=== PATIENT | female | born 1935 | race Caucasian/White ===

== ENCOUNTER → 2023-05-09 08:42 | Outpatient (REF) | payer MEDICARE, OTHER, SELFPAY ==
[2023-05-09 12:13] LABS: ALT (SGPT) 25 U/L (0-35); AST (SGOT) 25 U/L (14-36); Albumin 3.6 g/dl (3.5-5.0); Alkaline Phosphatase 114 U/L (38-126); Blood Urea Nitrogen 19 mg/dl (7-17); Calcium 9.7 mg/dl (8.4-10.2); Carbon Dioxide 33 mmol/L (22-30); Chloride 96 mmol/L (98-107); Glucose 140 mg/dl (70-99); HDL Cholesterol 52 mg/dl; LDL Cholesterol, Calculated 54 mg/dl; Potassium 4.2 mmol/L (3.5-5.1); Sodium 138 mmol/L (135-145); Total Bilirubin 0.7 mg/dl (0.2-1.3); Total Cholesterol 125 mg/dl (50-199); Total Protein 6.6 g/dl (6.3-8.2); Triglyceride 99 mg/dl (10-149); Very Low Density Lipoprotein 19 mg/dl (0-30); eGFR > 60.00
[2023-05-09 12:46] LABS: Microalbumin, Random Urine 0.9 mg/dl (0.6-1.7); Microalbumin/creatinine Ratio 6.7 mg/g
[2023-05-09 15:01] LABS: Glycohemoglobin (HgbA1c) 6.8 % (4.0-5.6)
== END ==
LOC: HWLAB 08:42
PROVIDERS: ATTENDING PHYSICIAN Internal Medicine
DX: I10 Essential (primary) hypertension (principal); E11.69 Type 2 diabetes mellitus with other specified complication
CPT/HCPCS: 36415; 80053; 80061; 82043; 82570; 83036

== ENCOUNTER → 2023-08-15 08:34 | Outpatient (REF) | payer MEDICARE, OTHER, SELFPAY ==
[2023-08-15 10:54] LABS: % Basophils 0.4 % (0-2); % Eosinophils 1.5 % (0-6); % Immature Granulocytes 0.4 % (0-0.5); % Monocytes 8.6 % (1.7-9.3); % Neutrophils 69.1 % (42.2-75.2); Absolute Eosinophils 0.1 10^3/uL (0-0.7); Absolute Lymphocytes 1.6 10^3/uL (1.2-3.4); Absolute Monocytes 0.7 10^3/uL (0.1-0.6); Absolute Neutrophils 5.6 10^3/uL (1.4-6.5); Hematocrit 32.5 % (37.0-47.0); Hemoglobin 9.7 g/dL (12.0-16.0); Mean Corp Hgb Conc. 29.8 g/dL (33.0-37.0); Mean Corpuscular Hgb 25.1 pg (27.0-31.0); Mean Platelet Volume 9.4 fL (7.4-10.4); Nucleated Red Blood Cells % 0 %; Platelet Count 450 10^3/uL (130-400); Red Blood Cell Count 3.87 10^6/uL (4.20-5.40); Red Cell Dist. Width 14.9 % (11.5-14.5)
[2023-08-15 11:28] LABS: ALT (SGPT) 20 U/L (0-35); AST (SGOT) 25 U/L (14-36); Albumin 3.2 g/dl (3.5-5.0); Alkaline Phosphatase 110 U/L (38-126); Blood Urea Nitrogen 21 mg/dl (7-17); Carbon Dioxide 30 mmol/L (22-30); Chloride 98 mmol/L (98-107); Glucose 123 mg/dl (70-99); HDL Cholesterol 52 mg/dl; LDL Cholesterol, Calculated 47 mg/dl; Potassium 3.8 mmol/L (3.5-5.1); Sodium 138 mmol/L (135-145); Total Bilirubin 0.5 mg/dl (0.2-1.3); Total Cholesterol 116 mg/dl (50-199); Triglyceride 85 mg/dl (10-149); Very Low Density Lipoprotein 17 mg/dl (0-30); eGFR > 60.00
[2023-08-15 11:52] LABS: TSH Reflex To Free T4 1.61 uIU/ml (0.47-4.68)
[2023-08-15 11:54] LABS: Glycohemoglobin (HgbA1c) 6.5 % (4.0-5.6)
== END ==
LOC: HWLAB 08:34
PROVIDERS: ATTENDING PHYSICIAN Internal Medicine
DX: I10 Essential (primary) hypertension (principal); E11.9 Type 2 diabetes mellitus without complications; E78.5 Hyperlipidemia, unspecified; G89.29 Other chronic pain; E03.9 Hypothyroidism, unspecified
CPT/HCPCS: 36415; 80053; 80061; 83036; 84443; 85025

== ENCOUNTER → 2023-08-17 10:04 | Outpatient (REF) | payer MEDICARE, OTHER, SELFPAY ==
[2023-08-17 12:53] LABS: % Basophils 0.5 % (0-2); % Eosinophils 0.8 % (0-6); % Immature Granulocytes 0.4 % (0-0.5); % Lymphocytes 17.1 % (20.5-51.1); % Monocytes 8.7 % (1.7-9.3); % Neutrophils 72.5 % (42.2-75.2); Absolute Basophils 0.1 10^3/uL (0-0.2); Absolute Eosinophils 0.1 10^3/uL (0-0.7); Absolute Lymphocytes 1.8 10^3/uL (1.2-3.4); Absolute Monocytes 0.9 10^3/uL (0.1-0.6); Absolute Neutrophils 7.5 10^3/uL (1.4-6.5); Hemoglobin 10.1 g/dL (12.0-16.0); Mean Corp Hgb Conc. 30.6 g/dL (33.0-37.0); Mean Corpuscular Hgb 25.3 pg (27.0-31.0); Mean Corpuscular Volume 82.5 fL (81.0-99.0); Mean Platelet Volume 9.8 fL (7.4-10.4); Nucleated Red Blood Cells % 0 %; Platelet Count 485 10^3/uL (130-400); Red Cell Dist. Width 14.9 % (11.5-14.5); White Blood Cell Count 10.3 10^3/uL (4.8-10.8)
[2023-08-17 13:25] LABS: Total Iron Binding Capacity 253 ug/dl (265-497)
[2023-08-17 15:37] LABS: Vitamin B12 > 1000 pg/ml (239-931)
== END ==
LOC: HWLAB 10:04
PROVIDERS: ATTENDING PHYSICIAN Internal Medicine
DX: I10 Essential (primary) hypertension (principal); E11.9 Type 2 diabetes mellitus without complications; D50.0 Iron deficiency anemia secondary to blood loss (chronic); M19.90 Unspecified osteoarthritis, unspecified site
CPT/HCPCS: 36415; 82607; 82728; 83550; 85025

== ENCOUNTER → 2023-11-14 09:42 | Outpatient (REF) | payer MEDICARE, OTHER, SELFPAY ==
[2023-11-14 11:50] LABS: % Basophils 0.5 % (0-2); % Eosinophils 0.5 % (0-6); % Immature Granulocytes 0.4 % (0-0.5); % Lymphocytes 16.3 % (20.5-51.1); % Monocytes 7.8 % (1.7-9.3); % Neutrophils 74.5 % (42.2-75.2); Absolute Basophils 0.1 10^3/uL (0-0.2); Absolute Eosinophils 0.1 10^3/uL (0-0.7); Absolute Lymphocytes 1.7 10^3/uL (1.2-3.4); Absolute Monocytes 0.8 10^3/uL (0.1-0.6); Absolute Neutrophils 7.6 10^3/uL (1.4-6.5); Hematocrit 31.1 % (37.0-47.0); Hemoglobin 9.7 g/dL (12.0-16.0); Mean Corp Hgb Conc. 31.2 g/dL (33.0-37.0); Mean Corpuscular Hgb 25.1 pg (27.0-31.0); Mean Corpuscular Volume 80.4 fL (81.0-99.0); Mean Platelet Volume 9.3 fL (7.4-10.4); Nucleated Red Blood Cells % 0 %; Platelet Count 515 10^3/uL (130-400); Red Blood Cell Count 3.87 10^6/uL (4.20-5.40); White Blood Cell Count 10.1 10^3/uL (4.8-10.8)
[2023-11-14 11:51] LABS: ALT (SGPT) 18 U/L (0-35); AST (SGOT) 28 U/L (14-36); Albumin 3.7 g/dl (3.5-5.0); Alkaline Phosphatase 110 U/L (38-126); Blood Urea Nitrogen 22 mg/dl (7-17); Calcium 10.2 mg/dl (8.4-10.2); Carbon Dioxide 30 mmol/L (22-30); Chloride 98 mmol/L (98-107); Glucose 122 mg/dl (70-99); HDL Cholesterol 61 mg/dl; LDL Cholesterol, Calculated 51 mg/dl; Potassium 4.1 mmol/L (3.5-5.1); Sodium 140 mmol/L (135-145); Total Bilirubin 0.5 mg/dl (0.2-1.3); Total Cholesterol 126 mg/dl (50-199); Total Protein 6.5 g/dl (6.3-8.2); Triglyceride 74 mg/dl (10-149); Very Low Density Lipoprotein 14 mg/dl (0-30); eGFR > 60.00
[2023-11-14 12:00] LABS: Intact PTH 34.4 pg/ml (13.6-85.8)
[2023-11-14 14:00] LABS: Erythrocyte Sed Rate 51 mm/hour (0-20)
[2023-11-14 14:02] LABS: Glycohemoglobin (HgbA1c) 5.9 % (4.0-5.6)
== END ==
LOC: HWLAB 09:42
PROVIDERS: ATTENDING PHYSICIAN Internal Medicine Rheumatology; FAMILY PHYSICIAN Internal Medicine
DX: E21.5 Disorder of parathyroid gland, unspecified (principal); M81.0 Age-related osteoporosis without current pathological fracture; R79.82 Elevated C-reactive protein (CRP); Z51.81 Encounter for therapeutic drug level monitoring; E11.9 Type 2 diabetes mellitus without complications; E78.5 Hyperlipidemia, unspecified; I10 Essential (primary) hypertension
CPT/HCPCS: 36415; 80053; 80061; 83036; 83970; 85025; 85652; 86140

== ENCOUNTER → 2023-11-23 11:55 | Outpatient (REF) | payer MEDICARE, OTHER, SELFPAY ==
[2023-11-23 15:39] LABS: % Basophils 0.3 % (0-2); % Eosinophils 0.2 % (0-6); % Immature Granulocytes 0.5 % (0-0.5); % Lymphocytes 16.8 % (20.5-51.1); % Monocytes 8.3 % (1.7-9.3); % Neutrophils 73.9 % (42.2-75.2); Absolute Immature Granulocytes 0.1 10^3/uL (0-0.05); Absolute Neutrophils 8.9 10^3/uL (1.4-6.5); Hematocrit 30.5 % (37.0-47.0); Hemoglobin 9.6 g/dL (12.0-16.0); Mean Corp Hgb Conc. 31.5 g/dL (33.0-37.0); Mean Corpuscular Hgb 24.2 pg (27.0-31.0); Nucleated Red Blood Cells % 0 %; Platelet Count 542 10^3/uL (130-400); Red Blood Cell Count 3.96 10^6/uL (4.20-5.40); Red Cell Dist. Width 15.1 % (11.5-14.5); Reticulocyte Count 1.8 % (0.4-2.8); White Blood Cell Count 12.1 10^3/uL (4.8-10.8)
[2023-11-23 15:43] LABS: Iron 26 ug/dl (37-170); LDH 172 U/L (120-246)
[2023-11-23 15:53] LABS: Percent Saturation 11 % (20-50); Total Iron Binding Capacity 236 ug/dl (265-497)
[2023-11-23 16:10] LABS: Erythrocyte Sed Rate 58 mm/hour (0-20)
[2023-11-23 16:53] LABS: Folate > 20.0 ng/ml (2.76-20); Vitamin B12 > 1000 pg/ml (239-931)
[2023-11-25 16:21] LABS: Erythropoietin (EPO) 17 mU/mL (4-27)
[2023-11-26 01:32] LABS: Haptoglobin 425 mg/dL (30-200)
== END ==
LOC: HWLAB 11:55
PROVIDERS: ATTENDING PHYSICIAN Internal Medicine Hematology & Oncology; FAMILY PHYSICIAN Internal Medicine; REFERRING PHYSICIAN Internal Medicine Rheumatology
DX: D64.9 Anemia, unspecified (principal); R79.82 Elevated C-reactive protein (CRP)
CPT/HCPCS: 36415; 82607; 82668; 82728; 82746; 82784; 83010; 83521; 83540; 83550; 83615; 84155; 84165; 85025; 85045; 85652; 86140; 86334; 86880

== ENCOUNTER → 2024-01-25 11:37 | Outpatient (REF) | payer MEDICARE, OTHER, SELFPAY ==
[2024-01-25 16:52] LABS: % Basophils 0.5 % (0-2); % Eosinophils 0.4 % (0-6); % Immature Granulocytes 0.4 % (0-0.5); % Lymphocytes 18.1 % (20.5-51.1); % Neutrophils 70.6 % (42.2-75.2); Absolute Basophils 0.1 10^3/uL (0-0.2); Absolute Lymphocytes 1.8 10^3/uL (1.2-3.4); Absolute Neutrophils 6.9 10^3/uL (1.4-6.5); Hematocrit 28.4 % (37.0-47.0); Hemoglobin 8.5 g/dL (12.0-16.0); Mean Corp Hgb Conc. 29.9 g/dL (33.0-37.0); Mean Corpuscular Hgb 23.6 pg (27.0-31.0); Mean Corpuscular Volume 78.9 fL (81.0-99.0); Mean Platelet Volume 9.3 fL (7.4-10.4); Nucleated Red Blood Cells % 0 %; Platelet Count 487 10^3/uL (130-400); White Blood Cell Count 9.8 10^3/uL (4.8-10.8)
[2024-01-25 16:59] LABS: ALT (SGPT) 17 U/L (0-35); AST (SGOT) 26 U/L (14-36); Albumin 3.5 g/dl (3.5-5.0); Alkaline Phosphatase 105 U/L (38-126); Blood Urea Nitrogen 17 mg/dl (7-17); Calcium 9.3 mg/dl (8.4-10.2); Carbon Dioxide 31 mmol/L (22-30); Chloride 97 mmol/L (98-107); Glucose 104 mg/dl (70-99); HDL Cholesterol 53 mg/dl; LDL Cholesterol, Calculated 41 mg/dl; Potassium 4.2 mmol/L (3.5-5.1); Sodium 139 mmol/L (135-145); Total Bilirubin 0.6 mg/dl (0.2-1.3); Total Cholesterol 110 mg/dl (50-199); Total Protein 6.3 g/dl (6.3-8.2); Triglyceride 83 mg/dl (10-149); Very Low Density Lipoprotein 16 mg/dl (0-30); eGFR > 60.00
[2024-01-25 17:14] LABS: Erythrocyte Sed Rate 61 mm/hour (0-20)
[2024-01-25 17:18] LABS: Vitamin D, 25-OH*** 45.6 ng/mL (30-80)
[2024-01-25 17:32] LABS: TSH Reflex To Free T4 1.11 uIU/ml (0.47-4.68)
[2024-01-26 11:46] LABS: Glycohemoglobin (HgbA1c) 5.8 % (4.0-5.6)
[2024-01-27 08:56] LABS: Intact PTH 38.5 pg/ml (13.6-85.8)
[2024-01-27 17:04] LABS: CTx 130 pg/mL
== END ==
LOC: HWLAB 11:37
PROVIDERS: ATTENDING PHYSICIAN Internal Medicine Rheumatology; FAMILY PHYSICIAN Internal Medicine
DX: E11.9 Type 2 diabetes mellitus without complications (principal); E78.5 Hyperlipidemia, unspecified; E03.9 Hypothyroidism, unspecified; I10 Essential (primary) hypertension; M15.0 Primary generalized (osteo)arthritis; M48.07 Spinal stenosis, lumbosacral region; M65.341 Trigger finger, right ring finger; M81.0 Age-related osteoporosis without current pathological fracture; Z87.81 Personal history of (healed) traumatic fracture
CPT/HCPCS: 36415; 80053; 80061; 82306; 82523; 83036; 83970; 84443; 85025; 85652; 86140

== ENCOUNTER → 2024-02-21 15:43 | Outpatient (REF) | payer MEDICARE, OTHER, SELFPAY | LOC: RAD 15:43 | PROVIDERS: ATTENDING PHYSICIAN Student in an Organized Health Care Education/Training Program; FAMILY PHYSICIAN Internal Medicine | DX: M86.652 Other chronic osteomyelitis, left thigh (principal) | CPT/HCPCS: 73701; Q9967 ==

== ENCOUNTER → 2024-04-02 10:53 | Outpatient (REF) | payer MEDICARE, OTHER, SELFPAY ==
[2024-04-02 13:22] LABS: ALT (SGPT) 20 U/L (0-35); AST (SGOT) 25 U/L (14-36); Albumin 3.5 g/dl (3.5-5.0); Alkaline Phosphatase 97 U/L (38-126); Blood Urea Nitrogen 16 mg/dl (7-17); Calcium 9.3 mg/dl (8.4-10.2); Carbon Dioxide 30 mmol/L (22-30); Chloride 95 mmol/L (98-107); Glucose 124 mg/dl (70-99); HDL Cholesterol 63 mg/dl; LDL Cholesterol, Calculated 50 mg/dl; Potassium 4.5 mmol/L (3.5-5.1); Sodium 134 mmol/L (135-145); Total Bilirubin 0.4 mg/dl (0.2-1.3); Total Cholesterol 127 mg/dl (50-199); Total Protein 6.3 g/dl (6.3-8.2); Triglyceride 73 mg/dl (10-149); Very Low Density Lipoprotein 14 mg/dl (0-30); eGFR > 60.00
[2024-04-02 14:13] LABS: Erythrocyte Sed Rate 58 mm/hour (0-20)
[2024-04-02 14:24] LABS: % Basophils 0.3 % (0-2); % Eosinophils 0.6 % (0-6); % Immature Granulocytes 0.4 % (0-0.5); % Lymphocytes 17.4 % (20.5-51.1); % Neutrophils 72.3 % (42.2-75.2); Absolute Eosinophils 0.1 10^3/uL (0-0.7); Absolute Lymphocytes 1.6 10^3/uL (1.2-3.4); Absolute Monocytes 0.8 10^3/uL (0.1-0.6); Absolute Neutrophils 6.8 10^3/uL (1.4-6.5); Hematocrit 28.9 % (37.0-47.0); Hemoglobin 8.7 g/dL (12.0-16.0); Mean Corp Hgb Conc. 30.1 g/dL (33.0-37.0); Mean Corpuscular Hgb 22.9 pg (27.0-31.0); Mean Corpuscular Volume 76.1 fL (81.0-99.0); Mean Platelet Volume 9.2 fL (7.4-10.4); Nucleated Red Blood Cells % 0 %; Platelet Count 493 10^3/uL (130-400); Red Cell Dist. Width 15.3 % (11.5-14.5); White Blood Cell Count 9.4 10^3/uL (4.8-10.8)
== END ==
LOC: HWLAB 10:53
PROVIDERS: ATTENDING PHYSICIAN Student in an Organized Health Care Education/Training Program; FAMILY PHYSICIAN Internal Medicine
DX: T84.50XD Infection and inflammatory reaction due to unspecified internal joint prosthesis, subsequent encounter (principal); E11.9 Type 2 diabetes mellitus without complications; I10 Essential (primary) hypertension; D50.0 Iron deficiency anemia secondary to blood loss (chronic); E78.5 Hyperlipidemia, unspecified
CPT/HCPCS: 36415; 80053; 80061; 83036; 85025; 85652; 86140

== ENCOUNTER → 2024-06-10 12:40 | Outpatient (REF) | payer MEDICARE, OTHER, SELFPAY ==
[2024-06-10 16:15] LABS: ALT (SGPT) 23 U/L (0-35); AST (SGOT) 25 U/L (14-36); Albumin 3.7 g/dl (3.5-5.0); Alkaline Phosphatase 126 U/L (38-126); Blood Urea Nitrogen 20 mg/dl (7-17); Calcium 10.9 mg/dl (8.4-10.2); Carbon Dioxide 32 mmol/L (22-30); Chloride 97 mmol/L (98-107); Glucose 116 mg/dl (70-99); Potassium 4.1 mmol/L (3.5-5.1); Sodium 138 mmol/L (135-145); Total Bilirubin 0.5 mg/dl (0.2-1.3); Total Protein 6.5 g/dl (6.3-8.2); eGFR > 60.00
[2024-06-10 16:56] LABS: Erythrocyte Sed Rate 60 mm/hour (0-20)
[2024-06-10 17:21] LABS: % Basophils 0.3 % (0-2); % Eosinophils 0.6 % (0-6); % Immature Granulocytes 0.5 % (0-0.5); % Lymphocytes 15.3 % (20.5-51.1); % Monocytes 8.3 % (1.7-9.3); Absolute Eosinophils 0.1 10^3/uL (0-0.7); Absolute Immature Granulocytes 0.1 10^3/uL (0-0.05); Absolute Monocytes 1.1 10^3/uL (0.1-0.6); Absolute Neutrophils 9.6 10^3/uL (1.4-6.5); Hematocrit 29.3 % (37.0-47.0); Hemoglobin 8.8 g/dL (12.0-16.0); Mean Corpuscular Hgb 22.6 pg (27.0-31.0); Mean Corpuscular Volume 75.3 fL (81.0-99.0); Mean Platelet Volume 9.2 fL (7.4-10.4); Nucleated Red Blood Cells % 0 %; Platelet Count 611 10^3/uL (130-400); Red Blood Cell Count 3.89 10^6/uL (4.20-5.40); Red Cell Dist. Width 17.4 % (11.5-14.5); White Blood Cell Count 12.8 10^3/uL (4.8-10.8)
== END ==
LOC: HWLAB 12:40
PROVIDERS: ATTENDING PHYSICIAN Student in an Organized Health Care Education/Training Program; FAMILY PHYSICIAN Internal Medicine
DX: M86.8X8 Other osteomyelitis, other site (principal)
CPT/HCPCS: 36415; 80053; 85025; 85652; 86140

== ENCOUNTER → 2024-07-22 14:46 | Outpatient (REF) | payer MEDICARE, OTHER, SELFPAY | LOC: CLAB 14:46 | PROVIDERS: ATTENDING PHYSICIAN Student in an Organized Health Care Education/Training Program | DX: T84.50XD Infection and inflammatory reaction due to unspecified internal joint prosthesis, subsequent encounter (principal) | CPT/HCPCS: 87070; 87075; 87205 ==

== ENCOUNTER → 2024-07-26 15:29 | Outpatient (REF) | payer MEDICARE, OTHER, SELFPAY | LOC: RAD 15:29 | PROVIDERS: ATTENDING PHYSICIAN Student in an Organized Health Care Education/Training Program; FAMILY PHYSICIAN Internal Medicine | DX: T84.50XD Infection and inflammatory reaction due to unspecified internal joint prosthesis, subsequent encounter (principal) | CPT/HCPCS: 73702; Q9967 ==

== ENCOUNTER → 2024-08-05 13:33 | Outpatient (REF) | payer MEDICARE, OTHER, SELFPAY ==
[2024-08-05 15:36] LABS: % Basophils 0.3 % (0-2); % Eosinophils 0.2 % (0-6); % Immature Granulocytes 0.6 % (0-0.5); % Lymphocytes 18.3 % (20.5-51.1); % Monocytes 10.1 % (1.7-9.3); % Neutrophils 70.5 % (42.2-75.2); Absolute Immature Granulocytes 0.1 10^3/uL (0-0.05); Absolute Lymphocytes 1.9 10^3/uL (1.2-3.4); Absolute Neutrophils 7.2 10^3/uL (1.4-6.5); Hematocrit 30.7 % (37.0-47.0); Hemoglobin 9.3 g/dL (12.0-16.0); Mean Corp Hgb Conc. 30.3 g/dL (33.0-37.0); Mean Corpuscular Hgb 23.7 pg (27.0-31.0); Mean Corpuscular Volume 78.1 fL (81.0-99.0); Mean Platelet Volume 9.3 fL (7.4-10.4); Nucleated Red Blood Cells % 0 %; Platelet Count 524 10^3/uL (130-400); Red Blood Cell Count 3.93 10^6/uL (4.20-5.40); Red Cell Dist. Width 17.3 % (11.5-14.5); White Blood Cell Count 10.2 10^3/uL (4.8-10.8)
[2024-08-05 15:57] LABS: ALT (SGPT) 36 U/L (0-35); AST (SGOT) 33 U/L (14-36); Albumin 3.4 g/dl (3.5-5.0); Alkaline Phosphatase 123 U/L (38-126); Blood Urea Nitrogen 19 mg/dl (7-17); Calcium 9.5 mg/dl (8.4-10.2); Carbon Dioxide 31 mmol/L (22-30); Chloride 103 mmol/L (98-107); Glucose 109 mg/dl (70-99); Potassium 4.1 mmol/L (3.5-5.1); Sodium 138 mmol/L (135-145); Total Bilirubin 0.5 mg/dl (0.2-1.3); eGFR > 60.00
[2024-08-05 16:05] LABS: Erythrocyte Sed Rate 81 mm/hour (0-20)
[2024-08-05 16:10] LABS: Microalbumin, Random Urine 1.1 mg/dl (0.6-1.7); Microalbumin/creatinine Ratio 17.7 mg/g
[2024-08-05 16:12] LABS: Vitamin D, 25-OH*** 47.3 ng/mL (30-80)
== END ==
LOC: HWLAB 13:33
PROVIDERS: ATTENDING PHYSICIAN Student in an Organized Health Care Education/Training Program; FAMILY PHYSICIAN Internal Medicine; REFERRING PHYSICIAN Internal Medicine Rheumatology
DX: T84.50XD Infection and inflammatory reaction due to unspecified internal joint prosthesis, subsequent encounter (principal); E11.9 Type 2 diabetes mellitus without complications; I10 Essential (primary) hypertension; E03.9 Hypothyroidism, unspecified; D50.0 Iron deficiency anemia secondary to blood loss (chronic); E78.5 Hyperlipidemia, unspecified; M15.0 Primary generalized (osteo)arthritis; M81.0 Age-related osteoporosis without current pathological fracture
CPT/HCPCS: 36415; 80053; 82043; 82306; 82570; 85025; 85652; 86140

== ENCOUNTER → 2024-08-09 13:54 | Outpatient (REF) | payer MEDICARE, OTHER, SELFPAY | LOC: HWRAD 13:54 | PROVIDERS: ATTENDING PHYSICIAN Student in an Organized Health Care Education/Training Program; FAMILY PHYSICIAN Internal Medicine | DX: L02.91 Cutaneous abscess, unspecified (principal); R22.42 Localized swelling, mass and lump, left lower limb | CPT/HCPCS: 76882 ==

== ENCOUNTER → 2024-08-15 09:16 | Outpatient (REF) | payer MEDICARE, OTHER, SELFPAY ==
[2024-08-15 09:48] VITALS: BP 127/58; BP_SYST 69
[2024-08-15 11:41] VITALS: BP 120/65
== END ==
LOC: RADI 09:16
PROVIDERS: ATTENDING PHYSICIAN Student in an Organized Health Care Education/Training Program; FAMILY PHYSICIAN Internal Medicine
DX: T81.41XA Infection following a procedure, superficial incisional surgical site, initial encounter (principal); Y83.8 Other surgical procedures as the cause of abnormal reaction of the patient, or of later complication, without mention of misadventure at the time of the procedure; M86.8X8 Other osteomyelitis, other site
CPT/HCPCS: 36573; 10030; 76942; 87070; 87075; 87205

== ENCOUNTER 2024-08-15 11:38 | Outpatient (RCR) | payer MEDICARE, OTHER, SELFPAY ==
[2024-08-15 12:00] VITALS: BP 109/60
[2024-08-15] MEDS: VANCOCIN 150 IV (12:07)
[2024-08-15] MEDS: ROCEPHIN 70 MG IV (13:11)
== END 2024-09-02 23:59 | disposition home or self-care (01) ==
LOC: OID 11:38
PROVIDERS: ATTENDING PHYSICIAN Student in an Organized Health Care Education/Training Program; FAMILY PHYSICIAN Internal Medicine
DX: T84.50XD Infection and inflammatory reaction due to unspecified internal joint prosthesis, subsequent encounter (principal); Y83.1 Surgical operation with implant of artificial internal device as the cause of abnormal reaction of the patient, or of later complication, without mention of misadventure at the time of the procedure; M86.8X8 Other osteomyelitis, other site
CPT/HCPCS: 10030; 36573; 76942; 87070; 87075; 87205; 96365; 96367

== ENCOUNTER 2024-08-16 15:32 | Emergency (ER) | payer MEDICARE, OTHER, SELFPAY ==
[2024-08-16 15:35] VITALS: BP 143/65
--- NOTE | 2024-08-16 16:19 | ED.GENMED ---
History of Present Illness
General
Chief Complaint: Vascular Access Problem
Time Seen by Provider: 08/16/24 16:18
History of Present Illness
History of Present Illness:
REVIEW OF OLD RECORDS
- The patient had a PICC placed by IR 08/15/2024
CHIEF COMPLAINT(S)
Blocked red port on recently placed Peripherally Inserted Central Catheter (PICC).
HISTORY OF PRESENT ILLNESS
The patient is an 89-year-old female who had a Peripherally Inserted Central Catheter (PICC) line inserted yesterday by Dr. Looney, the interventional radiologist, for the administration of long-term intravenous antibiotics due to a bacterial
infection as reported. The patients aide, who provides care together with the patients daughter, indicated that the red port of the PICC line is blocked and non-functional, although it has been flushed at home. The white port is functional. An X-ray
confirmed proper positioning of the PICC line, but concerns remain regarding the functionality of the red port.
There is also noted swelling and presence of a drainage catheter behind the patient�s left knee, indicative of ongoing infection management at that site, according to the aide.
ADDITIONAL HISTORY OBTAINED FROM SOURCES OTHER THAN THE PATIENT
Information was provided by the patients aide, including details about the PICC line blockage and functionality of ports, as well as the presence of a drainage catheter related to the infection.
REVIEW OF SYSTEMS
- Vascular Access: Difficulty with the red port of the PICC line being blocked.
- Musculoskeletal: Swelling noted around the left knee.
PHYSICAL EXAM
- Vascular Access: Presence of Peripherally Inserted Central Catheter (PICC) with blocked red port.
- Musculoskeletal: Significant swelling noted in the left knee area, with a drainage catheter present.
- General: Well appearing in no distress, but appears somewhat generally weak
- HEENT: Moist oral mucosa
- Abdomen: Soft with no peritoneal signs, no tenderness
- Neurologic: Fair strength all extremities, no coordination deficits
- Psychiatric: Appropriate mental status, normal insight and judgement
PLAN
- Attempt to flush the red port of the PICC line.
- Consult with the vascular access team to evaluate the functionality of the red port and determine need for intervention.
DIFFERENTIAL DIAGNOSIS
The Differential Diagnosis includes, in no particular order and is not limited to:
- Mechanical obstruction of PICC line
- Blood clot in PICC line
- Malposition of PICC line
- PICC line-related infection
- Local infection at the drainage site
- Soft tissue swelling secondary to infection
- Deep vein thrombosis
- Lymphedema
- Hematoma
- Venous insufficiency
RADIOLOGY
- Chest x-ray confirms tip of in the SVC
EKG
- Not indicated
LABS
- Not indicated
UPDATE
- I discussed case with vascular access team and I also discussed with the daughter at bedside. Will try Cathflo to open the blocked lumen of the PICC line.
Cathflo was used to open the red port. Return here if worse or other concerns. Chest x-ray confirmed appropriate positioning of the PICC line.
Past History
Past History
ED Past Medical History: NIDDM and Hypothyroidism
ED Past Surgical History: Appendectomy, Cholecystectomy and Orthopedic (right hip replaced)
Social History
Tobacco: Non-smoker
Alcohol: None
Drug: None
Personal:
Living: custodial ([facility] for rehab)
Employment: Not employed
Family History
Family History: Other (Noncontributory)
Phy Exam
Physical Exam
Physical Exam:
See HPI
Course
Orders/Labs/Results
Orders:
Orders
08/16/24 15:52
CR Chest Single View Urgent
Comment:
Reason For Exam: PICC placement confirmation
08/16/24 17:30
Alteplase [Cathflo/Activase] 2 mg INTRACATH NOW STA
Vital Signs
Initial and Last Documented VS:
Initial Vital Signs
Temp Pulse Resp BP Pulse Ox
36.5 C 75 17 143/65 99
08/16/24 15:35 08/16/24 15:35 08/16/24 15:35 08/16/24 15:35 08/16/24 15:35
Last Documented Vital Signs
Temp Pulse Resp BP Pulse Ox
36.5 C 75 17 143/65 99
08/16/24 15:35 08/16/24 15:35 08/16/24 15:35 08/16/24 15:35 08/16/24 15:35
*Pulse Oximetry
Patient hypoxic: no (99% room air-normal)
*Critical Care Note
Total Time (30-74mins, 75-104mins- exclusive of procedures): Not Applicable
ED Attending Note
-
Portions of this chart may have been created with voice recognition software.� Occasional wrong word or��sound alike� substitutions may have occurred due to the inherent limitations of voice recognition software.
Discharge Plan
Departure
Patient Disposition: Home (Routine Discharge)
Date of Disposition: 08/16/24
Time of Disposition: 18:15
Patient with high blood pressure during this ER visit?: Yes
Discharge Problem:
Occluded PICC line
Instructions: Peripherally-Inserted Central Catheter (DC), BLOOD PRESSURE
Prescriptions:
No Action
levothyroxine 50 MCG tablet
50 mcg PO DAILY AT 0700 Qty: 0
glucosamine sulfate
3 tab PO DAILY
hydrochlorothiazide 25 mg Tablet
12.5 mg PO DAILY
fluoxetine [Prozac] 20 mg Capsule
20 mg PO DAILY
simvastatin 40 MG tablet
40 mg PO QPM
Prolia 60 mg/mL Syringe
60 mg SC
mirabegron [Myrbetriq] 50 mg Tablet Extended Release 24 Hr
50 mg PO DAILY
Foltanx
2 tab PO DAILY
acetaminophen [Pain Reliever ES(acetaminophn)] 500 mg Tablet
1,000 mg PO TID Qty: 100 0RF
cholecalciferol (vitamin D3) 2,000 UNITS tablet
2,000 unit PO DAILY Qty: 90 0RF
Referrals:
Fredy Blandon I., [Family Provider, Internal Medicine]
Activity Restrictions/Additional Instructions:
Cathflo was used to open the red port. Return here if worse or other concerns. Chest x-ray confirmed appropriate positioning of the PICC line. Return here if worse or other concerns.
Interventions
Interventions:
*Risk Screen - Suicide Last Done: 08/16/24 15:35
*Neglect/Abuse Screening Last Done: 08/16/24 15:35
Discharge Date and Time
Print Language: [place]
[2024-08-16] MEDS: CATHFLO/ACTIVASE 2 MG INTRACATH (18:02)
--- NOTE | 2024-08-16 18:21 | VATNOTE ---
Patient presented to the ER with c/o unable to flush red lumen of double lumen PICC. Unable to flush or obtain blood return from red lumen; white lumen flushed easily and had brisk blood return. CatFlo instilled into red lumen as per protocol. Lumen
now flushes easily and has brisk blood return. ER MD made aware. Appropriate flushing and clamping of lumens reinforced with patient, daughter, and caregiver.
== END 2024-08-16 18:30 | disposition home or self-care (01) ==
LOC: EMR 15:32
PROVIDERS: EMERGENCY PHYSICIAN Emergency Medicine; FAMILY PHYSICIAN Internal Medicine
DX: T82.594A Other mechanical complication of infusion catheter, initial encounter (principal); Y92.9 Unspecified place or not applicable; E03.9 Hypothyroidism, unspecified; E11.9 Type 2 diabetes mellitus without complications; Z90.49 Acquired absence of other specified parts of digestive tract
CPT/HCPCS: 99283; 71045; J2997

== ENCOUNTER → 2024-09-09 11:17 | Outpatient (REF) | payer MEDICARE, OTHER, SELFPAY ==
[2024-09-09 15:48] LABS: Hematocrit 30.2 % (37.0-47.0); Hemoglobin 9.2 g/dL (12.0-16.0); Mean Corp Hgb Conc. 30.5 g/dL (33.0-37.0); Mean Corpuscular Volume 78.6 fL (81.0-99.0); Nucleated Red Blood Cells % 0 %; Platelet Count 410 10^3/uL (130-400); Red Cell Dist. Width 16.0 % (11.5-14.5)
[2024-09-09 15:51] LABS: ALT (SGPT) 34 U/L (0-35); AST (SGOT) 32 U/L (14-36); Albumin 3.4 g/dl (3.5-5.0); Blood Urea Nitrogen 17 mg/dl (7-17); Calcium 9.6 mg/dl (8.4-10.2); Carbon Dioxide 29 mmol/L (22-30); Chloride 103 mmol/L (98-107); Glucose 111 mg/dl (70-99); Potassium 3.7 mmol/L (3.5-5.1); Sodium 136 mmol/L (135-145); Total Protein 6.1 g/dl (6.3-8.2); eGFR > 60.00
[2024-09-09 15:54] LABS: C-Reactive Protein 75.30 mg/L (0.0-10.00)
[2024-09-09 16:00] LABS: Alkaline Phosphatase 104 U/L (38-126)
== END ==
LOC: HWLAB 11:17
PROVIDERS: ATTENDING PHYSICIAN Student in an Organized Health Care Education/Training Program; FAMILY PHYSICIAN Internal Medicine
DX: M86.10 Other acute osteomyelitis, unspecified site (principal)
CPT/HCPCS: 36415; 80053; 80202; 85025; 85652; 86140

== ENCOUNTER 2024-09-16 12:52 | Emergency (ER) | payer MEDICARE, OTHER, SELFPAY ==
[2024-09-16 13:01] VITALS: BP 134/58
--- NOTE | 2024-09-16 16:26 | ED.GENMED ---
History of Present Illness
General
Chief Complaint: Catheter/Tube Problem
Source: patient and records
Exam Limitations: none
Time Seen by Provider: 09/16/24 16:01
History of Present Illness
History of Present Illness:
89yoF currently being treated for a L leg infection with IV antibiotics via PICC line presenting with her daughter for evaluation of a clogged PICC line. Patient is scheduled to receive antibiotics up until 09/26/24. She started to notice that the
PICC line was 'sluggish' the past few days. The antibiotics typically take 1 hour to infuse but it has been taking 2 hours. She was seen in the ED about a month ago for a clogged PICC line and received Cathflo at that time. She denies any
swelling or pain in her arm. No fevers. She was seen by her ID physician earlier today.
Past History
Past History
ED Past Medical History: NIDDM and Hypothyroidism
ED Past Surgical History: Appendectomy, Cholecystectomy and Orthopedic (right hip replaced)
Social History
Tobacco: Non-smoker
Alcohol: None
Drug: None
Personal:
Living: detention ([facility] [facility] for rehab)
Employment: Not employed
Family History
Family History: Other (Noncontributory)
Phy Exam
General Physical Exam
General Presentation: well appearing and no apparent distress
General Skin: warm and dry
General Habitus: normal
General Mental: alert
ENT Exam
ENT Exam: normocephalic
Pulmonary Exam
Pulmonary Exam: no respiratory distress
Neurological Exam
Neurological Exam: alert
T[place]xton Coma Scale
Eye Opening: Spontaneous
Verbal Response: Oriented
Motor Response: Obeys Commands
GCS Total Score: 15
Skin Exam
Skin Exam: normal color, warm/dry and other (LUE PICC line in place without edema or signs of infection.)
Psychiatric Exam
Psychiatric Exam: normal mood/affect
Course
Vital Signs
Initial and Last Documented VS:
Initial Vital Signs
Temp Pulse Resp BP Pulse Ox
98 F 71 20 134/58 99
09/16/24 13:01 09/16/24 13:01 09/16/24 13:01 09/16/24 13:01 09/16/24 13:01
Last Documented Vital Signs
Temp Pulse Resp BP Pulse Ox
98 F 71 20 134/58 99
09/16/24 13:01 09/16/24 13:01 09/16/24 13:01 09/16/24 13:01 09/16/24 16:29
MDM/Problems Addressed
Differential Diagnosis Includes:
89yoF here for a'sluggish' PICC line. Antibiotics taking 2 hours instead of 1 the past few days. VSS. She is well appearing in no distress. There is no arm swelling or signs of surrounding cellulitis on exam. Differential diagnosis includes: PICC
line resistance vs. clogged PICC line
IV nurse came and assessed PICC line. She was able to flush ports and there was adequate blood return. The PICC is a dual lumen 4 [place] catheter and resistance is likely 2/2 to the size of the catheter. No need for Cathflo and patient stable for
discharge.
*Pulse Oximetry
SaO2: 99
Oxygen Mode of Delivery: Room air
Patient hypoxic: no (99%)
*Critical Care Note
Total Time (30-74mins, 75-104mins- exclusive of procedures): Not Applicable
ED Attending Note
-
Portions of this chart may have been created with voice recognition software.� Occasional wrong word or��sound alike� substitutions may have occurred due to the inherent limitations of voice recognition software.
Discharge Plan
Departure
Patient Disposition: Home (Routine Discharge)
Date of Disposition: 09/16/24
Time of Disposition: 16:59
Patient with high blood pressure during this ER visit?: No
Discharge Problem:
PIC line (peripherally inserted central catheter) flush, Status post PICC central line placement
Instructions: How to care for a peripherally inserted central catheter (PICC)
Prescriptions:
No Action
levothyroxine 50 MCG tablet
50 mcg PO DAILY AT 0700 Qty: 0
glucosamine sulfate
3 tab PO DAILY
hydrochlorothiazide 25 mg Tablet
12.5 mg PO DAILY
fluoxetine [Prozac] 20 mg Capsule
20 mg PO DAILY
simvastatin 40 MG tablet
40 mg PO QPM
Prolia 60 mg/mL Syringe
60 mg SC
mirabegron [Myrbetriq] 50 mg Tablet Extended Release 24 Hr
50 mg PO DAILY
Foltanx
2 tab PO DAILY
acetaminophen [Pain Reliever ES(acetaminophn)] 500 mg Tablet
1,000 mg PO TID Qty: 100 0RF
cholecalciferol (vitamin D3) 2,000 UNITS tablet
2,000 unit PO DAILY Qty: 90 0RF
Referrals:
UNKNOWN - PT DOES,NOT KNOW [Family Provider]
Activity Restrictions/Additional Instructions:
Continue antibiotics as prescribed by your infectious disease specialist. Return to the ER if your catheter stops working.
Interventions
Interventions:
*General Assessment Last Done: 09/16/24 13:01
*Neglect/Abuse Screening Last Done: 09/16/24 17:03
*ED COVID-19 Vaccine History Last Done: 09/16/24 17:03
Discharge Date and Time
Print Language: JORDANIAN
[2024-09-16 17:02] VITALS: BMI 26.6
--- NOTE | 2024-09-16 17:06 | VATNOTE ---
called to assess right DL 4FR PICC placed here at . Family stated picc is sluggish to flush. Assessed and flushed both lumens many times. Able to pull back and get blood return from both lumens.Thus no need to 'cathflo' picc. Explained to son
Peña, and Kiesha Leon (daughter) via phone that this particular kind of picc 4 fr dual lumen tends to be harder to flush than a 4 fr single lumen. Explained to fam that 2 lumens are going thru 1 smaller picc line ie 4FR. Son Peña stated one
antibiotic is a 'push' medication and the other is a 100 ml bag that hangs to gravity for infusion. Spoke with Kiesha , daughter, and she stated [facility] is the co. following her mother. Stated that the 100ml bag of antibiotic should most likely
be on a pump as to push the medication in. Hollis is not ideal. Kiesha stated that for 10 more days they would just 'deal with it' as is. Again confirmed with pt. & family that this particular PICC is operating exactly as it should. Anuja SMITH,
informed of the above as well as Daylin KHAN.
[2024-09-16 17:13] VITALS: BP 159/70
== END 2024-09-16 17:15 | disposition home or self-care (01) ==
LOC: EMR 12:52
PROVIDERS: EMERGENCY PHYSICIAN Emergency Medicine
DX: Z45.2 Encounter for adjustment and management of vascular access device (principal); E11.9 Type 2 diabetes mellitus without complications; E03.9 Hypothyroidism, unspecified
CPT/HCPCS: 99282

== ENCOUNTER → 2024-09-20 14:01 | Outpatient (REF) | payer MEDICARE, OTHER, SELFPAY ==
[2024-09-20 14:11] VITALS: BP 123/60; BP_SYST 70
[2024-09-20 14:25] VITALS: BP 113/57; BP_SYST 69
--- NOTE | 2024-09-20 14:32 | PN.IRAD.UPD ---
Update Note - IRAD
- -
LEFT LEG DRAINED REMOVED PER PHYSICIAN ODER. SITE STERILELY PREPPED, DRAIN REMOVED WITH NO ISSUE, SITE DRESSED WITH PRIMAPORE DRESSING.
[2024-09-20 14:39] VITALS: BP 113/57
== END ==
LOC: RADI 14:01
PROVIDERS: ATTENDING PHYSICIAN Internal Medicine Infectious Disease; FAMILY PHYSICIAN Internal Medicine
DX: Z48.03 Encounter for change or removal of drains (principal)

== ENCOUNTER → 2025-03-04 09:44 | Outpatient (REF) | payer MEDICARE, OTHER, SELFPAY ==
[2025-03-04 11:50] LABS: Hematocrit 29.9 % (37.0-47.0); Hemoglobin 8.8 g/dL (12.0-16.0); Mean Corp Hgb Conc. 29.4 g/dL (33.0-37.0); Mean Corpuscular Volume 69.5 fL (81.0-99.0); Nucleated Red Blood Cells % 0 %; Platelet Count 462 10^3/uL (130-400); Red Cell Dist. Width 17.2 % (11.5-14.5)
[2025-03-04 12:36] LABS: ALT (SGPT) 25 U/L (0-35); AST (SGOT) 23 U/L (14-36); Albumin 3.6 g/dl (3.5-5.0); Alkaline Phosphatase 119 U/L (38-126); Blood Urea Nitrogen 16 mg/dl (7-17); Calcium 9.7 mg/dl (8.4-10.2); Carbon Dioxide 31 mmol/L (22-30); Chloride 97 mmol/L (98-107); Glucose 135 mg/dl (70-99); HDL Cholesterol 50 mg/dl; LDL Cholesterol, Calculated 73 mg/dl; Potassium 4.4 mmol/L (3.5-5.1); Sodium 134 mmol/L (135-145); Total Protein 6.6 g/dl (6.3-8.2); Very Low Density Lipoprotein 12 mg/dl (0-30); eGFR > 60.00
[2025-03-04 12:39] LABS: Glycohemoglobin (HgbA1c) 7.4 % (4.0-5.9)
== END ==
LOC: HWLAB 09:44
PROVIDERS: ATTENDING PHYSICIAN Internal Medicine
DX: E11.9 Type 2 diabetes mellitus without complications (principal); I10 Essential (primary) hypertension
CPT/HCPCS: 36415; 80053; 80061; 83036; 84443; 85025